=== PATIENT | male | born 1985 | race Caucasian/White ===

== ENCOUNTER → 2023-11-20 | Outpatient (CLI) | payer OTHER ==
--- NOTE | 2023-11-28 05:00 | CT ---
EXAMINATION TYPE: CT cervical spine wo con CT DLP: 447 mGycm, Automated exposure control for dose reduction was used. DATE OF EXAM: 11/20/2023 7:23 PM COMPARISON: . CLINICAL INDICATION:Male, 37 years old with history of M50.30 THER CERVICAL DISC DEGENERATION, UNSP C ERVI; PHH, Neck pain since 2022 TECHNIQUE: Axial CT images from the skull base to the inferior aspect of T2 we obtained without intra venous contrast. Coronal and sagittal reformatted images were also reviewed. Contrast used: mL of , (if blank None) Oral contrast used: (if blank None) Cervical spine: Fracture: None seen. Osseous structures, spinal canal/neural foramina: There is mild degenerative disc disease at C5-C6 wi th mild anterior more than posterior disc osteophyte complex. Small intercalary bone noted anteriorly . Mild left-sided facet arthrosis C2-C3. There is no significant spinal canal or neural foraminal rebeka nosis identified. Vertebral alignment: No traumatic malalignment. Straightening of the normal cervical lordosis, can be due to pain, spasm, degenerative changes, presence of cervical collar. Neck soft tissues: No acute finding.. Other: Lung apices show no acute infiltrate or pneumothorax. IMPRESSION: 1. No evidence of cervical spine fracture or traumatic malalignment. 2. Mild cervical spondylosis.
== END | disposition home or self-care (01) ==
LOC: RADCTMAIN 18:44
PROVIDERS: ATTEND Family Medicine
DX: M47.812 Spondylosis without myelopathy or radiculopathy, cervical region (principal); M50.30 Other cervical disc degeneration, unspecified cervical region
CPT/HCPCS: 72125

== ENCOUNTER 2023-12-01 10:37 | Emergency (ER) | payer OTHER ==
[2023-12-01 10:45] VITALS: BP 119/78; PULSE 96; RESP 18; TEMP 98.6
[2023-12-01] MEDS: methocarbamoL 500 MG TAB PO STA (11:32)
--- NOTE | 2023-12-01 12:00 | ED ---
Back Pain HPI - General Chief Complaint: Back Pain/Injury Stated Complaint: knee pain,back pain Time Seen by Provider: 12/01/23 11:10 Source: patient, RN notes reviewed Limitations: no limitations - History of Present Illness Initial Comments: 37-year-old male with history of substance use disorder presenting to the ER with mid to low back pain x 1 day. States he woke up this morning and is having muscle spasms in his back with some abdominal pain and vomiting. States the abdominal pain is worse in the right lower quadrant. Denies trauma or injury. He has had back pain before but never this severe. States he has not taken anything for pain today. Denies IV drug use. His partner is present upon examination and states she feels he is more altered than normal, however patient states that this is just due to the pain. Denies any other health conditions. Denies fever. - Related Data Allergies Allergy/AdvReac Type Severity Reaction Status Date / Time No Known Allergies Allergy Verified 12/01/23 10:45 Review of Systems ROS Statement: Those systems with pertinent positive or pertinent negative responses have been documented in the HPI. ROS Other: All systems not noted in ROS Statement are negative. Past Medical History Past Medical History: No Reported History History of Any Multi-Drug Resistant Organisms: MRSA Date of last positivie culture/infection: 03/03/23 MDRO Source:: left buttocks Past Surgical History: Hernia Repair Additional Past Surgical History / Comment(s): wisdom teeth Past Psychological History: ADD/ADHD, Depression Smoking Status: Vaper Past Alcohol Use History: Occasional Past Drug Use History: Marijuana General Exam Limitations: no limitations General appearance: appears intoxicated, anxious Head exam: Present: atraumatic, normocephalic, normal inspection Eye exam: Present: normal appearance, PERRL, EOMI. Absent: scleral icterus, c onjunctival injection, periorbital swelling ENT exam: Present: normal exam, mucous membranes moist Neck exam: Present: normal inspection. Absent: tenderness, meningismus, lymphadenopathy Respiratory exam: Present: normal lung sounds bilaterally. Absent: respiratory distress, wheezes, rales, rhonchi, stridor Cardiovascular Exam: Present: regular rate, normal rhythm, normal heart sounds. Absent: systolic murmur, diastolic murmur, rubs, gallop, clicks GI/Abdominal exam: Present: soft, tenderness (Tender to palpation in right lower quadrant), normal bowel sounds. Absent: distended, guarding, rebound, rigid Extremities exam: Present: normal inspection, full ROM, normal capillary refill. Absent: tenderness, pedal edema, joint swelling, calf tenderness Back exam: Present: normal inspection, full ROM, tenderness (Diffuse paraspinal tenderness along thoracic and lumbar spine.), paraspinal tenderness. Absent: CVA tenderness (R), CVA tenderness (L), rash noted Neurological exam: Present: alert (Alert however closes eyes during exam, has to be asked questions several times before answering), oriented X3, CN II-XII intact Psychiatric exam: Present: agitated, anxious Skin exam: Present: warm, dry, intact, normal color. Absent: rash Course Vital Signs 12/01/23 10:39 Temperature 98.6 F Pulse Rate 96 Respiratory 18 Rate Blood Pressure 119/78 O2 Sat by Pulse 100 Oximetry Medical Decision Making - Medical Decision Making Was pt. sent in by a medical professional or institution (, PA, TROPHY ASSEMBLER, urgent care, hospital, or snf...) When possible be specific @ -No Did you speak to anyone other than the patient for history (EMS, parent, family, police, friend...)? What history was obtained from this source @ -Patient's partner supplemented history, she provided history that patient has meth use disorder Did you review nursing and triage notes (agree or disagree)? Why? @ -I reviewed and agree with nursing and triage notes Were old charts reviewed (outside hosp., previous admission, EMS record, old EKG, old radiological studies, urgent care reports/EKG's, snf records)? Report findings @ -No old charts were reviewed Differential Diagnosis (chest pain, altered mental status, abdominal pain women, abdominal pain men, vaginal bleeding, weakness, fever, dyspnea, syncope, headache, dizziness, GI bleed, back pain, seizure, CVA, palpatations, mental health, musculoskeletal)? @ -Differential Back Pain: Strain, zoster, cauda equina syndrome, epidural abscess, vertebral osteomyelitis, discitis, fracture, subluxation, disc herniation, DJD, spinal stenosis, dissection, AAA, pancreatitis, peptic ulcer disease, pyelonephritis, kidney stone, this is not meant to be an all-inclusive list. EKG interpreted by me (3pts min.). @ -None X-rays interpreted by me (1pt min.). @ -None done CT interpreted by me (1pt min.). @ -CT of abdomen pelvis without contrast revealed no acute process, negative for obstructive uropathy and appendix appears normal U/S interpreted by me (1pt. min.). @ -None done What testing was considered but not performed or refused? (CT, X-rays, U/S, labs)? Why? @ -Blood work ordered for further workup however patient refused any IVs or lab work at this time What meds were considered but not given or refused? Why? @ -Patient refused IV or IM medication Did you discuss the management of the patient with other professionals (professionals i.e. , PA, TROPHY ASSEMBLER, lab, RT, psych nurse, rn social work, box blank machine operator, teacher, liaison officer, shelter case manager)? Give summary @ -No Was smoking cessation discussed for >3mins.? @ -No Was critical care preformed (if so, how long)? @ -No Were there social determinants of health that impacted care today? How? (Homelessness, low income, unemployed, alcoholism, drug addiction, transportation, low edu. Level, literacy, decrease access to med. care, longterm, rehab)? @ -No Was there de-escalation of care discussed even if they declined (Discuss DNR or withdrawal of care, Hospice)? DNR status @ -No What co-morbidities impacted this encounter? (DM, HTN, Smoking, COPD, CAD, Cancer, CVA, ARF, Chemo, Hep., AIDS, mental health diagnosis, sleep apnea, morbid obesity)? @ -None Was patient admitted / discharged? Hospital course, mention meds given and rout e, prescriptions, significant lab abnormalities, going to OR and other pertinent info. @ -Patient left AGAINST MEDICAL ADVICE before workup was completed. Patient was seen and evaluated for back pain x 1 day. Patient has a history of meth use disorder but denies any recent meth use. Vital signs are stable upon examination, physical exam is remarkable for some paraspinal tenderness and right lower quadrant tenderness to palpation. Patient is altered on exam and agitated. He refused any IV or lab work. CT without contrast was done due to no lab work or access to IV contrast and was negative for acute abnormalities, negative for obstructive uropathy and appendix appears normal. Urine was ordered as well as urine drug screen however patient left AMA before workup was complete, results were discussed, or discharge instructions were given. Case discussed with Dr. Roque. Undiagnosed new problem with uncertain prognosis? @ -No Drug Therapy requiring intensive monitoring for toxicity (Heparin, Nitro, Insulin, Cardizem)? @ -No Were any procedures done? @ -No Diagnosis/symptom? @ -Back pain, right lower quadrant pain Acute, or Chronic, or Acute on Chronic? @ -Acute Uncomplicated (without systemic symptoms) or Complicated (systemic symptoms)? @ -Complicated Side effects of treatment? @ -No Exacerbation, Progression, or Severe Exacerbation? @ -No Poses a threat to life or bodily function? How? (Chest pain, [place], [place], pneumonia, PE, COPD, DKA, ARF, appy, cholecystitis, CVA, Diverticulitis, Homicidal, Suicidal, threat to staff... and all critical care pts) @ -Undetermined at this time Disposition Clinical Impression: Back pain, Right lower quadrant abdominal pain Disposition: LEFT AGAINST MEDICAL ADVICE Referrals: Ronald Mcduffie MD [Primary Care Provider] - 1-2 days Time of Disposition: 13:41
--- NOTE | 2023-12-01 12:19 | CT ---
EXAMINATION TYPE: CT abdomen pelvis wo con CT DLP: 395 mGycm, Automated exposure control for dose reduction was used. DATE OF EXAM: 12/01/2023 12:01 PM COMPARISON: None. CLINICAL INDICATION:Male, 37 years old with history of abd pain; RLQ abdominal pain. TECHNIQUE: Axial CT abdomen pelvis wo con;Sagittal and coronal reformats were created on a separate workstation. Contrast used: mL of , (none if empty) Oral contrast used: without Oral Contrast (none if empty) FINDINGS: LOWER CHEST: Unremarkable ABDOMEN LIVER: Unremarkable GALLBLADDER AND BILE DUCTS: Unremarkable. PANCREAS: Unremarkable. SPLEEN: Unremarkable. ADRENAL GLANDS: Unremarkable. KIDNEYS AND URETERS: No evidence of hydronephrosis or renal calculus. The ureters are unremarkable. PELVIS BLADDER: Unremarkable REPRODUCTIVE: Unremarkable. ABDOMEN & PELVIS STOMACH AND BOWEL: No evidence of bowel obstruction. Tubular structure series 202 image 42 is thought to represent the appendix which appears normal. Moderate amount of stool in the right colon. PERITONEUM/RETROPERITONEUM: No evidence of pneumoperitoneum or free fluid. VASCULATURE: No evidence of aortic aneurysm. MUSCULOSKELETAL: No acute osseous abnormalities LYMPH NODES: No gross evidence for lymphadenopathy. SOFT TISSUE/ABDOMINAL WALL: Unremarkable IMPRESSION: Limited evaluation without IV and oral contrast. No evidence for obstructive uropathy. The appendix i s thought to be normal.
[2023-12-01] MEDS: ETODOLAC 400 MG TAB PO STA (12:30)
[2023-12-01] MEDS: KETOROLAC 15 MG/ML 1 ML VIAL IM STA (12:32)
== END 2023-12-01 13:30 | disposition left against medical advice (07) ==
LOC: EC 10:37
DX: M54.6 Pain in thoracic spine (principal); M54.50 Low back pain, unspecified; R10.31 Right lower quadrant pain; F17.290 Nicotine dependence, other tobacco product, uncomplicated; Z53.29 Procedure and treatment not carried out because of patient's decision for other reasons
CPT/HCPCS: 74176; 99283